=== PATIENT | female | born 1960 | race Caucasian/White ===

== ENCOUNTER 2022-02-04 10:07 | Inpatient (IN) ==
[2022-02-04 11:32] LABS: ABS Lymphocytes 0.7 10^3/ul (1.0-4.8); ABS Monocytes 0.9 10^3/ul (0-0.8); Eosinophil % 0.2 %; Hematocrit 49 % (35-47); Hemoglobin 16.1 g/dL (12.0-16.0); Mean Corpuscular HGB Conc 33 g/dL (31-36); Mean Corpuscular Hemoglobin 33 pg (27-31); Mean Corpuscular Volume 99 fL (80-97); Platelet Count 147 10^3/uL (150-450); Red Blood Count 4.95 10^6 /uL (3.70-4.87); Red Cell Distribution Width 13 % (10-15); White Blood Count 5.6 10^3/uL (3.5-10.8)
[2022-02-04] MEDS ORDERED: Lactated Ringers 1000 ml BAG 1,000 ML IV ONE (12:35)
[2022-02-04 12:36] LABS: Albumin 4.6 g/dL (3.2-5.2); Albumin/Globulin Ratio 1.8 (1-3); Calcium 9.2 mg/dL (8.6-10.3); Globulin 2.5 g/dL (2-4); Potassium 4.3 mmol/L (3.5-5.0); Total Bilirubin 0.3 mg/dL (0.2-1.0); Total Protein 7.1 g/dL (6.4-8.9); eGFR CKD-EPI 101.3 (>60)
[2022-02-04 13:00] LABS: High Sensitivity Troponin 1 Hr 4 pg/mL (<15)
[2022-02-04] MEDS: Enoxaparin 30 MG/0.3 ML SYR SUBCUT SCH (14:20)
[2022-02-04] MEDS ORDERED: methylPREDNISolone SOD SUCC 40 mg/ml 1 ml VIAL IV ONE (14:46)
[2022-02-04] MEDS ORDERED: Albuterol/Ipratropium NEB.SOL (2.5/0.5 MG) 3 ML NEB.SOLN INH PRN (14:48)
[2022-02-04] MEDS: Nicotine PATCH 21 MG/24 HR PATCH TRANSDERM SCH (16:33)
[2022-02-05 06:24] LABS: ABS Lymphocytes 1.1 10^3/ul (1.0-4.8); ABS Monocytes 1.2 10^3/ul (0-0.8); ABS Neutrophils 5.1 10^3/ul (1.5-7.7); Eosinophil % 0.1 %; Hematocrit 46 % (35-47); Hemoglobin 15.2 g/dL (12.0-16.0); Lymphocyte % 14.7 %; Mean Corpuscular HGB Conc 33 g/dL (31-36); Mean Corpuscular Hemoglobin 33 pg (27-31); Mean Corpuscular Volume 99 fL (80-97); Mean Platelet Volume 9.3 fL (7.4-10.4); Nucleated Red Blood Cells % 0.1; Platelet Count 140 10^3/uL (150-450); Red Blood Count 4.66 10^6 /uL (3.70-4.87); Red Cell Distribution Width 13 % (10-15); White Blood Count 7.4 10^3/uL (3.5-10.8)
[2022-02-05 06:50] LABS: Calcium 8.9 mg/dL (8.6-10.3); Potassium 4.5 mmol/L (3.5-5.0); eGFR CKD-EPI 104.2 (>60)
[2022-02-05] MEDS: Albuterol/Ipratropium NEB.SOL (2.5/0.5 MG) 3 ML NEB.SOLN INH SCH ×4 (08:29→19:50)
[2022-02-05] MEDS: Nicotine PATCH 21 MG/24 HR PATCH TRANSDERM SCH (09:26)
[2022-02-05] MEDS ORDERED: Albuterol/Ipratropium NEB.SOL (2.5/0.5 MG) 3 ML NEB.SOLN INH SCH (13:00)
[2022-02-05] MEDS: Enoxaparin 30 MG/0.3 ML SYR SUBCUT SCH ×2 (14:50→14:57)
[2022-02-06] MEDS: Albuterol/Ipratropium NEB.SOL (2.5/0.5 MG) 3 ML NEB.SOLN INH SCH (02:20)
[2022-02-06] MEDS ORDERED: Albuterol/Ipratropium NEB.SOL (2.5/0.5 MG) 3 ML NEB.SOLN INH PRN (04:25)
[2022-02-06 06:14] LABS: ABS Lymphocytes 1.4 10^3/ul (1.0-4.8); ABS Monocytes 0.9 10^3/ul (0-0.8); ABS Neutrophils 3.5 10^3/ul (1.5-7.7); Eosinophil % 0.1 %; Hematocrit 43 % (35-47); Hemoglobin 14.2 g/dL (12.0-16.0); Lymphocyte % 24.6 %; Mean Corpuscular HGB Conc 33 g/dL (31-36); Mean Corpuscular Hemoglobin 33 pg (27-31); Mean Corpuscular Volume 100 fL (80-97); Mean Platelet Volume 9.5 fL (7.4-10.4); Nucleated Red Blood Cells % 0.1; Platelet Count 124 10^3/uL (150-450); Red Blood Count 4.32 10^6 /uL (3.70-4.87); Red Cell Distribution Width 12 % (10-15); White Blood Count 5.9 10^3/uL (3.5-10.8)
[2022-02-06 06:28] LABS: Calcium 8.7 mg/dL (8.6-10.3); eGFR CKD-EPI 106.1 (>60)
[2022-02-06] MEDS: Nicotine PATCH 21 MG/24 HR PATCH TRANSDERM SCH (08:09)
[2022-02-06] MEDS ORDERED: Influenza vaccine *QUAD* *2022-23* 0.5 ML SYRINGE IM ONE (13:36)
[2022-02-06] MEDS: Enoxaparin 30 MG/0.3 ML SYR SUBCUT SCH (14:40)
[2022-02-06 15:25] VITALS: BP 122/77
== END 2022-02-06 17:05 | disposition home or self-care (01) | DRG 140 ==
LOC: ED 10:07 → EDHOLD 13:36 → SUATTDRO 13:36 → MED 15:35
PROVIDERS: ADMIT Family Medicine; ATTEND Student in an Organized Health Care Education/Training Program